=== PATIENT | female | born 1955 | race Two or more races ===

== ENCOUNTER 2024-06-10 09:01 | Inpatient (IN) | payer MEDICARE, OTHER ==
[~2024-06-10] VITALS: Ht 162.6 cm; Wt 65.8 kg
[2024-06-10] MEDS ORDERED: MAGNESIUM HYDROXIDE 30 ML UDC PO PRN (10:30)
[2024-06-10] MEDS ORDERED: MAG HYDROX/AL HYDROX/SIMETH 30 ML UDC PO PRN (10:30)
[2024-06-10] MEDS: BLOOD SUGAR DIAGNOSTIC 1 EACH STRIP IN ONE (11:10)
[2024-06-10] MEDS ORDERED: CIPR500T5 PO (11:21)
[2024-06-10] MEDS ORDERED: METH500T6 PO (11:21)
[2024-06-10] MEDS ORDERED: FOLI0.4T6 PO (11:21)
[2024-06-10] MEDS ORDERED: DEUT6TAB PO (11:21)
[2024-06-10] MEDS ORDERED: ESCI20TA PO (11:21)
[2024-06-10] MEDS ORDERED: DOCU100C36 PO (11:21)
[2024-06-10] MEDS ORDERED: NYST60PO TP (11:21)
[2024-06-10] MEDS ORDERED: MAGN400O6 PO (11:21)
[2024-06-10] MEDS ORDERED: PIMA34CA PO (11:21)
[2024-06-10] MEDS ORDERED: CALCIUM CARBONATE PO (11:21)
[2024-06-10] MEDS ORDERED: MULT-213 PO (11:21)
[2024-06-10] MEDS ORDERED: ECON30CR4 TP (11:21)
[2024-06-10] MEDS ORDERED: ACET325T53 PO (11:21)
[2024-06-10] MEDS ORDERED: FERR325T23 PO (11:21)
[2024-06-10] MEDS ORDERED: NA P133E RC (11:21)
[2024-06-10] MEDS ORDERED: GABA-536 PO (11:21)
[2024-06-10] MEDS ORDERED: CLON0.5T4 PO (11:21)
[2024-06-10] MEDS ORDERED: QUETIAPINE FUMARATE 25 MG TABLET PO SCH (14:30)
[2024-06-10] MEDS: QUETIAPINE FUMARATE 25 MG TABLET PO SCH ×2 (14:38→21:19)
[2024-06-10] MEDS: LORAZEPAM 0.5 MG TABLET PO PRN (15:51)
[2024-06-10 16:00] VITALS: BP 143/68; TEMP 98.1; O2SAT 97
[2024-06-10] MEDS ORDERED: TEMAZEPAM 7.5 MG CAPSULE PO PRN (16:00)
[2024-06-10] MEDS ORDERED: DEUTETRABENAZINE 6 MG PO SCH (17:00)
[2024-06-10] MEDS: GABAPENTIN 400 MG CAPSULE PO SCH (17:11)
[2024-06-10] MEDS: NITROFURANTOIN/MONOHYDRATE MACROCRYSTALS 100 MG CAPSULE PO SCH (21:00)
[2024-06-10 21:10] VITALS: BP 147/80; TEMP 98; O2SAT 97
[2024-06-11] MEDS: ACETAMINOPHEN 325 MG TABLET PO PRN (06:34)
[2024-06-11 07:45] LABS: CREATININE 0.6 mg/dL (0.6-1.3)
[2024-06-11 07:52] LABS: ALBUMIN 3.2 g/dL (3.4-5.0); BILIRUBIN,TOTAL 0.4 mg/dL (0.2-1.0); CREATININE 0.5 mg/dL (0.6-1.3); POTASSIUM 3.9 mmol/L (3.5-5.1); TOTAL PROTEIN, SERUM 7.5 g/dL (6.4-8.2)
[2024-06-11 08:00] VITALS: BP 110/52; TEMP 97.7; O2SAT 97
[2024-06-11 08:03] LABS: THYROID STIMULATING HORMONE 3.15 uIU/mL (0.358-3.74)
[2024-06-11] MEDS: DOCUSATE SODIUM 100 MG CAPSULE PO SCH (08:28)
[2024-06-11] MEDS: FOLIC ACID 1 MG TABLET PO SCH (08:29)
[2024-06-11] MEDS: FERROUS SULFATE (325 MG) 325 MG/TAB TABLET PO SCH (08:29)
[2024-06-11] MEDS: MULTIVIT W/MINERALS 1 TAB TABLET PO SCH (08:29)
[2024-06-11] MEDS: ASCORBIC ACID 500 MG TABLET PO SCH (08:29)
[2024-06-11] MEDS: ESCITALOPRAM OXALATE (10 MG) 10 MG TABLET PO SCH (10:19)
[2024-06-11 10:20] LABS: ALBUMIN 3.2 g/dL (3.4-5.0); BILIRUBIN,DIRECT 0.1 mg/dL (0.0-0.2); BILIRUBIN,TOTAL 0.4 mg/dL (0.2-1.0); TOTAL PROTEIN, SERUM 7.5 g/dL (6.4-8.2)
[2024-06-11] MEDS: diphenhydrAMINE HCL 50 MG CAPSULE PO ONE (14:42)
[2024-06-11 16:00] VITALS: BP 156/73; TEMP 97.9; O2SAT 98
[2024-06-11 20:40] VITALS: BP 98/50; TEMP 98.2; O2SAT 100
[2024-06-12 08:00] VITALS: BP 120/54; TEMP 98.1; O2SAT 98
[2024-06-12 16:00] VITALS: BP 130/59; TEMP 99; O2SAT 98
[2024-06-12] MEDS: GABAPENTIN 300 MG CAPSULE PO SCH (16:29)
[2024-06-12] MEDS: NYSTATIN TOP POWDER 15 GM BOTTLE TP SCH (16:33)
[2024-06-12] MEDS: METHOCARBAMOL (750MG) 750 MG TABLET PO SCH (17:01)
[2024-06-12] MEDS: IBUPROFEN 600 MG TABLET PO PRN (20:55)
[2024-06-12] MEDS: BENZTROPINE MESYLATE (1 MG) 1 MG TABLET PO SCH (21:20)
[2024-06-13 04:20] LABS: APPEARANCE,URINE CLEAR (CLEAR); BILIRUBIN,URINE NEGATIVE (NEGATIVE); BLOOD, URINE TRACE-INTA Ery/uL (NEGATIVE); COLOR,URINE YELLOW (YELLOW); KETONES,URINE NEGATIVE (NEGATIVE); LEUKOCYTE ESTERASE ,URINE NEGATIVE (NEGATIVE); NITRITE, URINE NEGATIVE (NEGATIVE); PROTEIN,URINE NEGATIVE (NEGATIVE); UGLUCOSE NEGATIVE (NEGATIVE); UROBILINOGEN,URINE 0.2 EU/dL (0.2)
[2024-06-13 04:50] LABS: ADD URINE CULTURE NO; BACTERIA,URINE Rare /HPF (None Seen); SQUAMOUS EPITHELIAL CELL,UR Few /HPF (None Seen); WBC,URINE 0-2 /HPF (0-3)
[2024-06-13 08:00] VITALS: BP 109/52; TEMP 97.9; O2SAT 100
[2024-06-13] MEDS: ESCITALOPRAM OXALATE (10 MG) 10 MG TABLET PO SCH (08:46)
[2024-06-13] MEDS: QUETIAPINE FUMARATE 25 MG TABLET PO PRN (11:55)
[2024-06-13 15:28] LABS: THYROID STIMULATING HORMONE 2.21 uIU/mL (0.358-3.74)
[2024-06-13 16:00] VITALS: BP 128/59; TEMP 98.8; O2SAT 98
[2024-06-13 20:29] VITALS: BP 116/54; TEMP 98.3; O2SAT 99
[2024-06-14 08:00] VITALS: BP 107/59; TEMP 97.8; O2SAT 98
[2024-06-14] MEDS: ESCITALOPRAM OXALATE (10 MG) 10 MG TABLET PO SCH (08:36)
[2024-06-14 09:08] LABS: FOLIC ACID > 20.0 ng/mL (>3.0)
[2024-06-14] MEDS: diphenhydrAMINE HCL 25 MG CAPSULE PO PRN (12:13)
[2024-06-14 16:00] VITALS: BP 116/53; TEMP 97.9; O2SAT 98
[2024-06-15 05:23] VITALS: BP 130/62; TEMP 98; O2SAT 98
[2024-06-15 08:00] VITALS: BP 109/50; TEMP 97.7; O2SAT 100
[2024-06-15 16:00] VITALS: BP 136/77; TEMP 97.8; O2SAT 96
[2024-06-15 20:00] VITALS: BP 103/67; TEMP 97.7; O2SAT 95
[2024-06-16 08:00] VITALS: BP 109/67; TEMP 97.8; O2SAT 99
[2024-06-16 16:00] VITALS: BP 113/64; TEMP 97.8; O2SAT 98
[2024-06-16 20:00] VITALS: BP 123/68; TEMP 97.9; O2SAT 100
[2024-06-17] MEDS: DULOXETINE HCL 30 MG CAPSULE.DR PO SCH (08:20)
[2024-06-17 09:17] VITALS: BP 130/53; TEMP 97.9; O2SAT 100
[2024-06-17 16:01] VITALS: BP 134/59; TEMP 98.6; O2SAT 98
[2024-06-17 20:40] VITALS: BP 112/54; TEMP 98.3; O2SAT 96
[2024-06-18 08:00] VITALS: BP 110/68; TEMP 97.7; O2SAT 97
[2024-06-18 14:08] LABS: METHYLMALONIC ACID 130 nmol/L (0-378)
[2024-06-18 16:00] VITALS: BP 103/59; TEMP 97.9; O2SAT 98
[2024-06-18 20:53] VITALS: BP 129/57; TEMP 98.2; O2SAT 100
[2024-06-19 07:08] LABS: VITAMIN B1 THIAMINE,WB 86.2 nmol/L (66.5-200.0)
[2024-06-19 08:00] VITALS: BP 106/57; TEMP 98.7; O2SAT 98
[2024-06-19] MEDS ORDERED: DULOXETINE HCL 30 MG CAPSULE.DR PO SCH (09:00)
[2024-06-19 16:00] VITALS: BP 116/72; TEMP 98.7; O2SAT 98
[2024-06-19 21:16] VITALS: BP 122/52; TEMP 98.3; O2SAT 100
[2024-06-19] MEDS: QUETIAPINE FUMARATE 25 MG TABLET PO SCH (21:30)
[2024-06-20 08:00] VITALS: BP 122/74; TEMP 97.9; O2SAT 100
[2024-06-20] MEDS: DULOXETINE HCL 30 MG CAPSULE.DR PO SCH (09:00)
[2024-06-20 16:00] VITALS: BP 105/57; TEMP 98.7; O2SAT 98
[2024-06-20 20:04] VITALS: BP 103/53; TEMP 98.1; O2SAT 99
[2024-06-21 08:00] VITALS: BP 126/56; TEMP 98; O2SAT 99
[2024-06-21 16:00] VITALS: BP 102/52; TEMP 98; O2SAT 98
[2024-06-21 20:00] VITALS: BP 109/52; TEMP 98.5; O2SAT 98
[2024-06-22 08:00] VITALS: BP 102/59; TEMP 97.9; O2SAT 98
== END 2024-06-22 13:40 | DRG 885 ==
LOC: GPS 09:06
PROVIDERS: ADMIT Nurse Practitioner Psychiatric/Mental Health; ATTEND Internal Medicine
DX: F33.2 Major depressive disorder, recurrent severe without psychotic features (principal); N39.0 Urinary tract infection, site not specified; E44.1 Mild protein-calorie malnutrition; F29 Unspecified psychosis not due to a substance or known physiological condition; G20.A1 Parkinson's disease without dyskinesia, without mention of fluctuations; D64.9 Anemia, unspecified; F39 Unspecified mood [affective] disorder; F41.9 Anxiety disorder, unspecified; E78.5 Hyperlipidemia, unspecified; F06.70 Mild neurocognitive disorder due to known physiological condition without behavioral disturbance; Z79.899 Other long term (current) drug therapy; Z73.6 Limitation of activities due to disability; Z96.642 Presence of left artificial hip joint; G25.81 Restless legs syndrome; G89.29 Other chronic pain; F40.00 Agoraphobia, unspecified
CPT/HCPCS: 36415; 80053-TC; 80061-TC; 80076-TC; 81001; 82565-TC; 82607-TC; 82728-TC; 82962-TC; 83540-TC; 83921; 84425; 84439-TC; 84443-TC; 87081-TC; 87086-TC; 97110-TC; 97116-TC; 97530-TC; Q0163